=== PATIENT | female | born 1990 | race Hispanic/Latino ===

== ENCOUNTER 2025-03-19 10:59 | Emergency (ER) | payer MEDICARE ==
[~2025-03-19] VITALS: Ht 167.6 cm; Wt 122.5 kg
[2025-03-19 11:17] VITALS: TEMP 98.7
[2025-03-19 11:43] LABS: LEUKOCYTE ESTERASE ,URINE MODERATE (NEGATIVE)
[2025-03-19 11:44] LABS: PROTEIN,URINE DIPSTICK 1+ (NEGATIVE); URINE UROBILINOGEN 0.2 mg/dL (0.2 - 1)
[2025-03-19 11:58] LABS: EPITHELIAL CELLS,URINE RARE /LPF; WBC,URINE (MAN) >50 /HPF (0-5)
[2025-03-19] MEDS ORDERED: PYRIDIUM100 MG PO (12:16)
[2025-03-19] MEDS ORDERED: CIPRO500 MG PO (12:16)
[2025-03-19 12:26] VITALS: PULSE 82; RESP 16; O2SAT 100
== END 2025-03-19 12:20 | disposition home or self-care (01) ==
LOC: ER 11:09
DX: R30.0 Dysuria (principal); N39.0 Urinary tract infection, site not specified; R10.30 Lower abdominal pain, unspecified
CPT/HCPCS: 81001; 87086; 87186; 99283